=== PATIENT | female | born 1980 | race Caucasian/White ===

== ENCOUNTER 2018-10-11 19:06 | Emergency (ER) | payer SELFPAY ==
[~2018-10-11] VITALS: Ht 160 cm; Wt 60.0 kg
[2018-10-11 19:09] VITALS: TEMP 98.4
[2018-10-11] MEDS ORDERED: NORCO 325 MG-51 TAB PO (20:25)
[2018-10-11 20:48] VITALS: BP 125/82; PULSE 68
== END 2018-10-11 20:44 | disposition home or self-care (01) ==
LOC: COL.ER 19:06
DX: S86.812A Strain of other muscle(s) and tendon(s) at lower leg level, left leg, initial encounter (principal); X50.0XXA Overexertion from strenuous movement or load, initial encounter
CPT/HCPCS: J1885; L1846

== ENCOUNTER 2018-10-13 18:47 | Emergency (ER) | payer SELFPAY ==
[~2018-10-13] VITALS: Ht 157.5 cm; Wt 60.0 kg
[~2018-10-13 18:47] MED LIST: NORCO 325 MG-51 TAB PO
[2018-10-13 18:56] VITALS: TEMP 97.2
[2018-10-13] MEDS ORDERED: NORCO 325 MG-51 TAB PO (20:19)
[2018-10-13 21:20] VITALS: BP 122/99; PULSE 69
== END 2018-10-13 21:21 | disposition home or self-care (01) ==
LOC: COL.ER 18:47
DX: M25.462 Effusion, left knee (principal)

== ENCOUNTER 2018-10-21 21:52 | Emergency (ER) | payer SELFPAY ==
[~2018-10-21] VITALS: Ht 157.5 cm; Wt 57.7 kg
[2018-10-21 21:55] VITALS: TEMP 98.3
[2018-10-21 22:29] LABS: BASO % 0.4 % (0.0-2.0); EOS # 0.4 (0.0-0.7); EOS % 5.5 % (0-4.0); GRAN # 3.6 (1.4-6.5); GRAN % 53.7 % (42.2-75.2); HEMATOCRIT 39.9 % (37.0-47.0); HEMOGLOBIN 14.2 g/dl (12.5-16.0); LYMPH # 2.1 (1.2-3.4); LYMPH % 31.1 % (20.0-51.0); MEAN CELL VOLUME 93 fl (80.0-100.0); MEAN CORPUSCULAR HEMOGLOBIN 33 pg (27.0-31.0); MEAN CORPUSCULAR HGB CONC 36 g/dl (33.0-37.0); MEAN PLATELET VOLUME 10.3 fl (7.4-10.4); MONO # 0.6 (0.1-0.6); MONO % 9.2 % (1.7-9.3); PLATELET COUNT 221 K/mm3 (130-400); RED BLOOD COUNT 4.28 M/mm3 (4.10-5.30); REDCELL DISTRIBUTION WIDTH-CV 11.7 % (11.5-14.5)
[2018-10-21 22:43] LABS: ALANINE AMINOTRANSFERASE 21 U/L (9-52); ALBUMIN 4.3 gm/dL (3.5-5.0); ALKALINE PHOSPHATASE 82 U/L (50-136); ANION GAP 11 mmol/L (7-16); AST,SGOT 50 U/L (15-37); BILIRUBIN,TOTAL 0.3 mg/dL (0.0-1.0); BLOOD UREA NITROGEN 13 mg/dL (7-17); CALCIUM 9.5 mg/dL (8.4-10.2); CARBON DIOXIDE 25 mmol/L (22-30); CHLORIDE 105 mmol/L (98-107); CREATININE, serum 0.54 (0.52-1.25); GLUCOSE 102 mg/dL (74-106); POTASSIUM 3.8 mmol/L (3.4-5.0); SODIUM 141 mmol/L (137-145); TOTAL PROTEIN 7.5 gm/dL (6.4-8.2)
[2018-10-21 22:44] LABS: C-REACTIVE PROTEIN < 0.5 mg/dL (0.0-0.9)
[2018-10-21 22:51] LABS: ERYTHROCYTE SEDIMENTATION RATE 5 mm/hr (0-20)
[2018-10-22 00:27] VITALS: BP 116/85; PULSE 69
== END 2018-10-22 00:32 | disposition home or self-care (01) ==
LOC: COL.ER 21:52
PROVIDERS: Physician Assistant
DX: S52.125A Nondisplaced fracture of head of left radius, initial encounter for closed fracture (principal); W18.40XA Slipping, tripping and stumbling without falling, unspecified, initial encounter; Y92.009 Unspecified place in unspecified non-institutional (private) residence as the place of occurrence of the external cause
CPT/HCPCS: Q4050

== ENCOUNTER 2019-09-20 23:27 | Inpatient (IN) | payer OTHER ==
[~2019-09-20] VITALS: Ht 154.9 cm; Wt 71.4 kg
--- NOTE | 2019-09-20 23:20 | NUR ---
G5L4. 40-2. Ambulatory to LDR 3 with spouse. Clean gown on. EFM and TOCO explained and applied. Pt does not speak [place] and is translating for her. Pt states she has been jhon since 1400 today, states they were 15 minutes apart but now 5 mins apart, reports contraction pain is all in her back. Denies leaking of fluids or vaginal bleeding. Reports good movement. SVE /-2. Assessment and VS taken. Plan of care explained to pt and . Call light within reach.
[2019-09-21] VITALS (25 sets, daily range): BP systolic 99–135; BP diastolic 53–76; PULSE 64–83; TEMP 97.5–98.4
--- NOTE | 2019-09-21 00:03 | NUR ---
updated on pts status. See physican notification. Pt and updated on plan of care. Denies questions at this time. 0033: IV started and LR bolus infusing without difficulties. Call light within reach.
--- NOTE | 2019-09-21 03:50 | NUR ---
at nurses station and reviews FHR strip. Reviews FHR strip at admission. No new orders at this time
--- NOTE | 2019-09-21 08:15 | NUR ---
0751- This RN at bedside to go over consent forms and discuss plan or care. Angela flynn [facility] interpreting on speaker phone. Consents signed. Plan of care discussed and questions encouraged and answered. Pt is not planning on an epidural. She verbalizes that she is okay with starting Pitocin and for Dr Myles to break her water when he comes in.
[2019-09-21 08:19] LABS: BASO % 0.5 % (0.0-2.0); EOS # 0.3 (0.0-0.7); EOS % 3.2 % (0-4.0); GRAN # 4.9 (1.4-6.5); GRAN % 57.8 % (42.2-75.2); HEMATOCRIT 37.2 % (37.0-47.0); HEMOGLOBIN 12.3 g/dl (12.5-16.0); LYMPH # 2.3 (1.2-3.4); LYMPH % 27.5 % (20.0-51.0); MEAN CELL VOLUME 98 fl (80.0-100.0); MEAN CORPUSCULAR HEMOGLOBIN 32 pg (27.0-31.0); MEAN CORPUSCULAR HGB CONC 33 g/dl (33.0-37.0); MEAN PLATELET VOLUME 9.8 fl (7.4-10.4); MONO # 0.8 (0.1-0.6); MONO % 9.7 % (1.7-9.3); PLATELET COUNT 208 K/mm3 (130-400); REDCELL DISTRIBUTION WIDTH-CV 13.7 % (11.5-14.5)
--- NOTE | 2019-09-21 08:30 | NUR ---
0817- Dr Myles at bedside. , Harvey, interprets for Pt. SVE performed with AROM, clear, odorless fluid noted.
--- NOTE | 2019-09-21 10:00 | NUR ---
0951- SVE by this RN, /-1. Pt uncomfortable and feeling pressure. Dr Myles called to come to hospital. RN remains at bedside. Preps room for delivery. Yossi, Nursery RN called to bedside. 0955- Pitocin off.
--- NOTE | 2019-09-21 10:29 | NUR ---
1006- Dr Myles at bedside. Bed broken down for delivery. Pt encouraged to start pushing with UCs. 1012- VORB to restart Pitocin at 2mu. Pt coached on pushing. 1029- of viable male . Spontaneous crying noted. to mother's and where tended to by nursery RN. Pitocin off. Cord clamped and cut, cord blood obtained. 1032- Spontaneous delivery of placenta, Pitocin restarted at 333ml/hr. Fundus massaged to firm by . Perineum intact. Pericare care performed. Clean chux under Pt. Ice pack to perineum. Pt resting with baby skin-2-skin. at bedside. Call light within reach.
--- NOTE | 2019-09-21 12:50 | NUR ---
1250- Pt ambulates to bathroom independently with this RN standby. Voids without difficulty. Pericare completed. Underwear and pad on. Clean gown on. Pt taken to PP room via wheelchair, oriented to room. Call light within reach.
[2019-09-21] MEDS ORDERED: MOTRIN 800800 MG/TAB PO (17:15)
[2019-09-22 03:35] VITALS: BP 118/65; PULSE 70; TEMP 97.5
[2019-09-22 09:15] VITALS: BP 107/68; PULSE 75; TEMP 97.9
== END 2019-09-22 15:30 | disposition home or self-care (01) | DRG 807 ==
LOC: LDRO 23:27 → OB 09-21 07:05 → LDR 09-21 07:05 → OB 09-21 13:00
PROVIDERS: Obstetrics & Gynecology; ADMIT Obstetrics & Gynecology
PROC: 10E0XZZ Delivery of Products of Conception, External Approach (ICD-10-PCS; principal; 2019-09-21)
PROC: 10907ZC Drainage of Amniotic Fluid, Therapeutic from Products of Conception, Via Natural or Artificial Opening (ICD-10-PCS; 2019-09-21)
DX: O48.0 Post-term pregnancy (principal); Z37.0 Single live birth; Z3A.40 40 weeks gestation of pregnancy
CPT/HCPCS: J2590; J7120

== ENCOUNTER 2021-06-23 15:41 | Emergency (ER) | payer SELFPAY ==
[~2021-06-23] VITALS: Ht 157.5 cm; Wt 56.8 kg
[~2021-06-23 15:41] MED LIST changes: +MOTRIN 800800 MG/TAB PO
[2021-06-23 16:39] VITALS: TEMP 98.2
[2021-06-23 17:17] LABS: BASO % 0.4 % (0.0-2.0); EOS # 0.4 K/mm3 (0.0-0.7); EOS % 6.1 % (0.0-4.0); GRAN # 3.4 K/mm3 (1.4-6.5); GRAN % 46.7 % (42.2-75.2); HEMOGLOBIN 12.9 g/dl (12.5-16.0); LYMPH # 2.9 K/mm3 (1.2-3.4); LYMPH % 39.3 % (20.0-51.0); MEAN CELL VOLUME 92 fl (80.0-100.0); MEAN CORPUSCULAR HEMOGLOBIN 33 pg (27-31); MEAN CORPUSCULAR HGB CONC 35 g/dl (33.0-37.0); MEAN PLATELET VOLUME 9.8 fl (7.4-10.4); MONO # 0.5 K/mm3 (0.1-0.6); MONO % 7.2 % (1.7-9.3); PLATELET COUNT 290 K/mm3 (130-400); RED BLOOD COUNT 3.97 M/mm3 (4.10-5.30); REDCELL DISTRIBUTION WIDTH-CV 11.9 % (11.5-14.5)
[2021-06-23 17:18] LABS: HEMATOCRIT 36.7 % (37.0-47.0)
[2021-06-23 17:21] LABS: COLLECTION METHOD CATHETER
[2021-06-23 17:34] LABS: PH 7 (5-8); SQUAMOUS EPITHELIAL 0-2 /hpf (0-10); URINE APPEARANCE Hazy (CLEAR/HAZY); URINE BACTERIA Rare /hpf (NONE SEEN); URINE BILIRUBIN Negative (NEGATIVE); URINE BLOOD 3+ (NEGATIVE); URINE COLOR Yellow (YELLOW); URINE GLUCOSE Negative (NEGATIVE); URINE KETONE Negative (NEGATIVE); URINE LEUKOCYTE ESTERASE Trace (NEGATIVE); URINE NITRATE Negative (NEGATIVE); URINE PROTEIN(semi-quant) Negative (NEGATIVE); URINE RBC >50 /hpf (0-2); URINE UROBILINOGEN Negative (NEGATIVE)
[2021-06-23 17:36] LABS: ALBUMIN 3.7 gm/dL (3.5-5.0); BILIRUBIN,TOTAL 0.3 mg/dL (0.2-1.2); CREATININE, serum 0.67 mg/dL (0.57-1.11); POTASSIUM 4.3 mmol/L (3.5-4.5); TOTAL PROTEIN 7.1 gm/dL (6.2-8.1)
[2021-06-23] MEDS ORDERED: CEPHALEXIN500 M1 PO (18:31)
[2021-06-23 18:48] VITALS: BP 115/77; PULSE 84
== END 2021-06-23 18:48 | disposition home or self-care (01) ==
LOC: COL.ER 15:41
PROVIDERS: Physician Assistant
DX: O20.0 Threatened abortion (principal); O23.41 Unspecified infection of urinary tract in pregnancy, first trimester; N39.0 Urinary tract infection, site not specified; Z3A.01 Less than 8 weeks gestation of pregnancy
CPT/HCPCS: J7030